=== PATIENT | male | born 1950 | race Hispanic/Latino ===

== ENCOUNTER → 2021-09-24 | Outpatient (CLI) | payer OTHER | END | disposition home or self-care (01) | LOC: RAH 07:45 | PROVIDERS: ATTEND Internal Medicine | DX: I70.8 Atherosclerosis of other arteries (principal); R09.89 Other specified symptoms and signs involving the circulatory and respiratory systems | CPT/HCPCS: 76775 ==

== ENCOUNTER → 2021-09-30 | Outpatient (CLI) | payer OTHER | END | disposition home or self-care (01) | LOC: RAH 09:54 → EDUNIT# 10:30 | PROVIDERS: ATTEND Internal Medicine | DX: R13.11 Dysphagia, oral phase (principal); R63.30 Feeding difficulties, unspecified | CPT/HCPCS: 74230; 92611 ==